=== PATIENT | female | born 1940 | race Caucasian/White ===

== ENCOUNTER → 2017-01-12 | Outpatient (CLI) | payer MEDICARE, BC ==
[~2017-01-12] MED LIST: ADVIL200 MG PO; ALEVE PO; AMARYL 2MG T2 MG/TAB PO; AMARYL4 MG PO; ASPIRIN E.C. 8181 MG PO; BENTYL 20MG20 MG/TAB PO; CRESTOR 10MG10 MG PO; GLUCOPHAGE XR500 M1 PO; HCTZ 25MG TAB25 MG PO; JANUVIA 100MG100 MG PO; LANTUS SOLOS100 U/ML SQ; MULTIPLE VITAMI1 CAP PO; SUPER EPA-3001000 MG PO; ULTRAM 50MG TAB50 MG PO; ZANTAC PO; ZESTRIL 5MG5 MG PO; [UNRECOGNIZED DRUG - OTHER] PO
== END ==
LOC: MC.RAD 16:33
DX: Z12.31 Encounter for screening mammogram for malignant neoplasm of breast (principal)

== ENCOUNTER → 2018-01-13 | Outpatient (CLI) | payer MEDICARE, BC | LOC: MC.RAD 08:20 | DX: Z12.31 Encounter for screening mammogram for malignant neoplasm of breast (principal) ==

== ENCOUNTER → 2019-02-21 | Outpatient (CLI) | payer MEDICARE, BC | LOC: MC.RAD 11:30 | DX: Z12.31 Encounter for screening mammogram for malignant neoplasm of breast (principal) ==

== ENCOUNTER 2019-04-01 16:12 | Emergency (ER) | payer MEDICARE, BC ==
[2019-04-01 16:16] VITALS: BP 161/70; TEMP 97.6
[2019-04-01 17:22] LABS: BASO % 0.5 % (0.0-2.0); EOS # 0.1 (0.0-0.7); EOS % 1.8 % (0-4.0); GRAN # 3.1 (1.4-6.5); GRAN % 47.2 % (42.2-75.2); HEMATOCRIT 38.4 % (37.0-47.0); HEMOGLOBIN 12.4 g/dl (12.5-16.0); LYMPH # 2.7 (1.2-3.4); LYMPH % 41.8 % (20.0-51.0); MEAN CELL VOLUME 90 fl (80.0-100.0); MEAN CORPUSCULAR HEMOGLOBIN 29 pg (27.0-31.0); MEAN CORPUSCULAR HGB CONC 32 g/dl (33.0-37.0); MEAN PLATELET VOLUME 9.9 fl (7.4-10.4); MONO # 0.6 (0.1-0.6); MONO % 8.4 % (1.7-9.3); PLATELET COUNT 216 K/mm3 (130-400); RED BLOOD COUNT 4.27 M/mm3 (4.10-5.30); REDCELL DISTRIBUTION WIDTH-CV 12.9 % (11.5-14.5)
[2019-04-01 17:37] LABS: ALBUMIN 4.3 gm/dL (3.5-5.0); BILIRUBIN,TOTAL 0.6 mg/dL (0.0-1.0); CALCIUM 9.3 mg/dL (8.4-10.2); CREATININE, serum 0.95 (0.52-1.25); TOTAL PROTEIN 7.7 gm/dL (6.4-8.2)
[2019-04-01] MEDS ORDERED: ZOFRAN ODT4 MG PO (18:31)
[2019-04-01 19:00] VITALS: PULSE 78
== END 2019-04-01 19:00 | disposition home or self-care (01) ==
LOC: COL.ER 16:12
PROVIDERS: Emergency Medicine
DX: S06.0X9A Concussion with loss of consciousness of unspecified duration, initial encounter (principal); S00.93XA Contusion of unspecified part of head, initial encounter; Z79.82 Long term (current) use of aspirin; Z79.4 Long term (current) use of insulin; W22.8XXA Striking against or struck by other objects, initial encounter

== ENCOUNTER 2019-06-11 11:11 | Inpatient (IN) | payer MEDICARE, BC ==
[~2019-06-11] VITALS: Ht 167.6 cm; Wt 81.3 kg
[~2019-06-11 11:11] MED LIST changes: +ZOFRAN ODT4 MG PO
[2019-06-11] MEDS ORDERED: LIPITOR20 MG PO (11:40)
[2019-06-11] MEDS ORDERED: JANUVIA50 MG PO (11:40)
[2019-06-11 12:05] LABS: HEMOGLOBIN 11.1 g/dl (12.5-16.0); MEAN CELL VOLUME 87 fl (80.0-100.0); MEAN CORPUSCULAR HEMOGLOBIN 28 pg (27.0-31.0); MEAN CORPUSCULAR HGB CONC 32 g/dl (33.0-37.0); MEAN PLATELET VOLUME 10.5 fl (7.4-10.4); PLATELET COUNT 213 K/mm3 (130-400); RED BLOOD COUNT 3.93 M/mm3 (4.10-5.30); REDCELL DISTRIBUTION WIDTH-CV 13.8 % (11.5-14.5)
[2019-06-11 12:08] LABS: HEMATOCRIT 34.3 % (37.0-47.0)
[2019-06-11 12:10] LABS: INR 1.1 (0.8-3.0); PROTHROMBIN TIME 12.3 SECONDS (9.7-12.8)
[2019-06-11 12:19] LABS: ALANINE AMINOTRANSFERASE 19 U/L (4-34); ALBUMIN 3.6 gm/dL (3.5-5.0); ALKALINE PHOSPHATASE 151 U/L (50-136); ANION GAP 9 mmol/L (7-16); AST,SGOT 27 U/L (15-37); BILIRUBIN,TOTAL 1.6 mg/dL (0.0-1.0); BLOOD UREA NITROGEN 35 mg/dL (7-17); CARBON DIOXIDE 26 mmol/L (22-30); CHLORIDE 102 mmol/L (98-107); CREATININE, serum 1.03 (0.52-1.25); GLUCOSE 286 mg/dL (74-106); LIPASE 43 U/L (23-300); POTASSIUM 3.8 mmol/L (3.4-5.0); SODIUM 137 mmol/L (137-145); TOTAL PROTEIN 7.1 gm/dL (6.4-8.2)
[2019-06-11 12:24] LABS: BAND 30 % (0-10); LYMPHOCYTE 6 % (20.0-51.0); METAMYELOCYTE 1 % (0-0); OVALOCYTES 2+; PLATELET ESTIMATE NORMAL (NORMAL)
[2019-06-11 12:33] LABS: TROPONIN-I < 0.012 ng/mL (0.000-0.035)
[2019-06-11 12:35] LABS: NEUTROPHILS 58 % (42.0-75.2)
[2019-06-11 13:02] LABS: C-REACTIVE PROTEIN 36.8 mg/dL (0.0-0.9)
[2019-06-11 13:22] LABS: COLLECTION METHOD CLEAN CATCH
[2019-06-11 13:35] LABS: MUCOUS Present /lpf; PH 6 (5-8); SQUAMOUS EPITHELIAL 0-2 /hpf; URINE APPEARANCE Hazy; URINE BACTERIA Rare /hpf; URINE BILIRUBIN Negative (NEGATIVE); URINE BLOOD 1+ (NEGATIVE); URINE COLOR Yellow; URINE GLUCOSE 3+ (NEGATIVE); URINE KETONE Trace (NEGATIVE); URINE LEUKOCYTE ESTERASE 3+ (NEGATIVE); URINE NITRATE Positive (NEGATIVE); URINE PROTEIN(semi-quant) Negative (NEGATIVE); URINE UROBILINOGEN Negative (NEGATIVE)
--- NOTE | 2019-06-11 14:40 | NUR ---
Pt to room 318 on medical unit at 1415. Pt came up via stretcher from ED. Dr. Orozco with pt, will wait until he is done before imaging scheduler.
[2019-06-11 15:35] VITALS: BP 125/51; PULSE 75; TEMP 97.9
[2019-06-11 19:05] VITALS: BP 129/41; PULSE 76; TEMP 97.8
--- NOTE | 2019-06-11 19:20 | NUR ---
Pt report received from Jyotsna RN at Pt bedside. No s/s of distress noted. Call light is at Pt side and bedside table has beverages within reach. Will continue to monitor.
--- NOTE | 2019-06-11 19:21 | NUR ---
report given to angela arenas.
[2019-06-11 23:29] VITALS: BP 112/45; PULSE 72; TEMP 99.1
[2019-06-12] VITALS (7 sets, daily range): BP systolic 127–142; BP diastolic 47–60; PULSE 74–138; TEMP 98–98.9
--- NOTE | 2019-06-12 01:52 | NUR ---
Pt has remained in stable condition during the shift and is resting peacefully in bed at this time with eyes closed and no s/s of distress noted. Pt is A&Ox4, able to make wants/needs known, and has call light within reach. Pt has a persistent cough with sputum produced periodically that is thick and reported as green/yellow. Pt has remained in a generally positive mood this shift and is cooperative with care and compliant with medication regimen. Will continue to monitor.
[2019-06-12 06:36] LABS: BASO % 0.3 % (0.0-2.0); EOS # 0.1 (0.0-0.7); EOS % 1.7 % (0-4.0); GRAN # 4.4 (1.4-6.5); GRAN % 69.2 % (42.2-75.2); LYMPH # 1.1 (1.2-3.4); LYMPH % 17.1 % (20.0-51.0); MEAN CELL VOLUME 88 fl (80.0-100.0); MEAN CORPUSCULAR HGB CONC 32 g/dl (33.0-37.0); MONO # 0.7 (0.1-0.6); MONO % 10.9 % (1.7-9.3); PLATELET COUNT 186 K/mm3 (130-400); RED BLOOD COUNT 3.33 M/mm3 (4.10-5.30)
[2019-06-12 06:50] LABS: HEMATOCRIT 29.4 % (37.0-47.0); HEMOGLOBIN 9.4 g/dl (12.5-16.0); MEAN CORPUSCULAR HEMOGLOBIN 28 pg (27.0-31.0)
[2019-06-12 06:51] LABS: CALCIUM 8.4 mg/dL (8.4-10.2); CREATININE, serum 0.83 (0.52-1.25); POTASSIUM 3.8 mmol/L (3.4-5.0)
--- NOTE | 2019-06-12 07:28 | NUR ---
Pt report given to Gissel ASTUDILLO.
--- NOTE | 2019-06-12 08:00 | NUR ---
PATIENT IS A&O. VSS. SR IN 70'S ON TELE. PATIENT'S ONLY C/O PAIN IS HER CHRONIC BACK PAIN RATED AT 3/10. PATIENT SITTING AT BEDSIDE EATING BREAKFAST. NURSING ASSISTED PATIENT INTO BEDSIDE CHAIR WITH PILLOW AND WARM BLANKET TO HER BACK. PATIENT REPORTS THAT FEELS MUCH BETTER. PATIENT REPORTS COUGH IS BETTER, NON-PRODUCTIVE. RIGHT LUNG-HARTMAN ARE DEMINISHED. LEFT LUNG-HARTMAN CTA. PATIENT REPORTS SHE STILL FEELS WEAK AND TIRED BUT LESS THAN WHEN SHE WAS ADMITTED. APPETITE IS BETTER. EAT/DRINKING SUFFICIENT AMOUNTS. NO C/O N/V. IV FLUIDS INFUSING INTO RIGHT AC VIA PUMP. IV ABX INFUSING. AM MEDS GIVEN. HEAD TO TOE ASSESSMENT COMPLETE. NO OTHER NEEDS. CALL LIGHT IN REACH.
[2019-06-12 08:19] LABS: PATHOLOGY DIFF REVIEW OK
[2019-06-12 09:39] LABS: ALBUMIN 2.8 gm/dL (3.5-5.0); BILIRUBIN UNCONJUGATED 0.5 mg/dL (0.0-1.1); BILIRUBIN,DIRECT 0.2 mg/dL (0.0-0.4); BILIRUBIN,TOTAL 0.7 mg/dL (0.0-1.0); TOTAL PROTEIN 5.9 gm/dL (6.4-8.2)
--- NOTE | 2019-06-12 13:50 | NUR ---
TELE CALLED REPORTING PATIENT IS GOING IN AND OUT OF A-FIB. PATIENT HAS NO HX OF A-FIB. NOTED HR IN THE 130'S AND HEART SOUNDED FAST UPON ENTERING ROOM. AFTER JUST 1-2 MIN PATIENT HR WAS BACK IN THE 80'S AND SR. PATIENT ASYMPTOMATIC. STAT EKG ORDERED AND RT AT BEDSIDE. HOSPITALIST NOTIFIED.
--- NOTE | 2019-06-12 13:55 | NUR ---
GAVE CARDIZEM BOLUS PER ORDERS.
--- NOTE | 2019-06-12 14:31 | NUR ---
SULY met with the patient and her daughter, Kathleen Lindsay (ph#[phone]), to discuss discharge plan. 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 She reports independence with ADLs and does not have any DME. The patient's PCP is Dr. Farhad Gonzalez and she receives her medications at [facility] or [facility]. She reports no difficulties obtaining her meds. The patient does not have advanced directives completed, but she was interested in obtaining a form for DPOA-HC. SULY provided. The patient plans to return home with her son upon discharge. No additional needs at this time.
--- NOTE | 2019-06-12 14:39 | NUR ---
First visit from the sanitary chemist. No needs right now.
--- NOTE | 2019-06-12 17:20 | NUR ---
TELE CALLED AND REPORTED PATIENT APPEARED TO BE IN A-FIB ON TELE AGAIN. PATIENT SITTING UP IN BEDSIDE CHAIR, ASYMPTOMATIC, VSS WITH HR IN 80'S. NOTIFIED HOSPITALIST. SEE NEW ORDERS.
--- NOTE | 2019-06-12 19:00 | NUR ---
Pt report received from dayshift nurse at bedside. Pt has call light within reach and during shift report informs this mortgage or loan underwriter that she would like a pain pill at bedtime to help make her confortable and help with her back pain. No s/s of distress noted. Will continue to monitor.
--- NOTE | 2019-06-12 23:24 | NUR ---
Pt has been resting peacefully in bed during this shift with no s/s of distress noted. Pt requested her PRN [place] at HS for back pain. Pt has call light within reach and beverages on her bedside table within reach. Pt is A&Ox4 and is able to make wants/needs known. This service writer has received no rpeorts from tele nurse during this shift so far regarding Pt's rate or rhythym. Will continue to monitor.
[2019-06-13 00:25] VITALS: BP 117/46; PULSE 78; TEMP 99.3
[2019-06-13 03:35] VITALS: BP 130/45; PULSE 81; TEMP 98.7
--- NOTE | 2019-06-13 04:57 | NUR ---
Pt has been resting in bed when this keno writer / runner was notified by Tele Nurse that Pt had elevated HR with some PAC's that last for a few moments and then Pt converts back into NSR. This keno writer / runner will check on Pt and inform Tele of assessment.
--- NOTE | 2019-06-13 05:07 | NUR ---
Pt resting in bed peacefully with eyes open as this typewriter ribbon winder enters room. Pt denies any current or recent chest pain, pressure, palpitations, changes to respiratory status, or any pain out of the ordinary. This typewriter ribbon winder assessed Pt's apical pulse and noted a regular rhythym and a rate of 84. Tele nurse given report. Will continue to monitor.
--- NOTE | 2019-06-13 05:37 | NUR ---
Pt AM meds given and Pt reports that she has continued back pain with the Ultram not working as effectively as the [place] that she had at HS. Pt continues to have pain at this time and requests PRN pain medication. Call light at Pt's side. Will continue to monitor.
--- NOTE | 2019-06-13 07:10 | NUR ---
Pt report given to Melodie ASTUDILLO
[2019-06-13 07:42] LABS: MEAN CELL VOLUME 87 fl (80.0-100.0); MEAN CORPUSCULAR HGB CONC 33 g/dl (33.0-37.0); MEAN PLATELET VOLUME 9.7 fl (7.4-10.4); PLATELET COUNT 216 K/mm3 (130-400)
[2019-06-13 07:54] LABS: HEMATOCRIT 29.7 % (37.0-47.0); HEMOGLOBIN 9.7 g/dl (12.5-16.0); MEAN CORPUSCULAR HEMOGLOBIN 29 pg (27.0-31.0)
[2019-06-13 08:00] VITALS: BP 127/46; PULSE 82; TEMP 97.9
[2019-06-13 08:04] LABS: CALCIUM 8.2 mg/dL (8.4-10.2); CREATININE, serum 0.76 (0.52-1.25); MAGNESIUM 1.8 mg/dL (1.6-2.3); POTASSIUM 3.6 mmol/L (3.4-5.0)
--- NOTE | 2019-06-13 08:26 | NUR ---
PATIENT IS ALERT AND ORIENTED. EATING BREAKFAST FINE. EDEMA IN RIGHT UPPER EXTREMITY. COMMPLAINS OF MILD PAIN IN HER BACK(RIGHT SIDE). COUGH IS NON PRODUCTIVE.
[2019-06-13 08:32] LABS: TSH w REFLEX 1.9 uIU/mL (0.465-4.680)
[2019-06-13 08:48] LABS: BAND 14 % (0-10); EOSINOPHIL 1 % (0-4); LYMPHOCYTE 19 % (20.0-51.0); METAMYELOCYTE 1 % (0-0); NEUTROPHILS 60 % (42.0-75.2); PLATELET ESTIMATE NORMAL (NORMAL)
[2019-06-13 12:01] VITALS: BP 133/50; PULSE 73; TEMP 97.8
[2019-06-13 16:43] VITALS: BP 119/44; PULSE 73; TEMP 98.6
--- NOTE | 2019-06-13 17:59 | NUR ---
Patient complain of increase in edema in her legs. IV site changed from right forearm to left forearm. patient tolerate antibiotic therapy well. Family -daughter visit at bedside. patient mention she didn't have enough urine output has in the past, Bladder scan show 120mL fluid. Patient requested for pee medication, Dr Orozco was informed of the litttle increase of edema in her feet bilaterally. Dr Orozco said he might consider diuretic medication tomorrow. Patient output willl be observed continuously.
[2019-06-13 20:10] VITALS: BP 138/56; PULSE 75; TEMP 98.9
--- NOTE | 2019-06-13 22:36 | NUR ---
RECIEVED REPORT FROM DAY SHIFT. PATIENT WAS UP AND MOVING IN HER ROOM. INSULIN WAS GIVEN TO HER AT HS. PATIENT WAS ALSO GIVEN A PAIN PILL TO HELP WITH HER PAIN. PATIENT HAS HER CALL LIGHT WITHIN IN REACH IF SHE NEEDS SOMETHING,
[2019-06-14] VITALS (7 sets, daily range): BP systolic 125–143; BP diastolic 45–57; PULSE 71–88; TEMP 97.7–99.7
--- NOTE | 2019-06-14 05:07 | NUR ---
PATIENT HAS BEEN ABLE TO REST THROUGHOUT THE NIGHT AND GET COMFORTABLE. ONLY REQUESTED PAIN MEDICATION THIS AM. EDEMA STILL PRESENT ON THE RIGHT SIDE THAT I WILL LET DAY SHIFT KNOW ABOUT. WILL REPORT TO DAY SHIFT UPON THEIR ARRIVAL OF HOW THE PATIENTS NIGHT WAS AND HER CONDITION.
[2019-06-14 06:39] LABS: MEAN CELL VOLUME 87 fl (80.0-100.0); MEAN CORPUSCULAR HGB CONC 32 g/dl (33.0-37.0); MEAN PLATELET VOLUME 9.6 fl (7.4-10.4); PLATELET COUNT 240 K/mm3 (130-400); RED BLOOD COUNT 3.38 M/mm3 (4.10-5.30); REDCELL DISTRIBUTION WIDTH-CV 13.9 % (11.5-14.5)
[2019-06-14 06:48] LABS: HEMATOCRIT 29.5 % (37.0-47.0); HEMOGLOBIN 9.4 g/dl (12.5-16.0); MEAN CORPUSCULAR HEMOGLOBIN 28 pg (27.0-31.0)
--- NOTE | 2019-06-14 08:15 | NUR ---
Patient is sitting up on side of the bed, denies having any pain. Call light and personal items are within reach.
[2019-06-14 08:25] LABS: BAND 13 % (0-10); EOSINOPHIL 5 % (0-4); LYMPHOCYTE 23 % (20.0-51.0); METAMYELOCYTE 2 % (0-0); MYELOCYTE 1 % (0-0); NEUTROPHILS 46 % (42.0-75.2); PLATELET ESTIMATE NORMAL (NORMAL)
[2019-06-14 08:26] LABS: OVALOCYTES 1+
--- NOTE | 2019-06-14 18:08 | NUR ---
Patient is sitting up in recliner eating supper. There is a visitor at bedside. Call light and personal items are within reach.
--- NOTE | 2019-06-14 18:54 | NUR ---
Received call from tele later in the afternoon that patient was having high heart rate that appeared to be atrial fibrillation. Did check on patient and she was noted to be up in her room. She did sit down and rate continued. Did notify providers and was instructed to monitor rate and rhythm and notify if no changes were made and an EKG would be ordered. Notified telemetry of this and they informed me that rate and rhythm had normalized.
[2019-06-15 00:58] VITALS: BP 126/43; PULSE 78; TEMP 99.9
[2019-06-15 05:03] VITALS: BP 138/60; PULSE 79; TEMP 99.9
--- NOTE | 2019-06-15 05:22 | NUR ---
PATIENT HAS BEEN RESTING THROUGHOUT THE NIGHT. PATIENT DOES REPORT SOME PAIN IN HER RIGHT SIDE AND BACK THAT [place] HAS BEEN GIVEN FOR. PATIENT IS INDEPDENT IN ROOM AND IS ABLE TO CARE FOR HERSELF. PATIENT DENIES ANY OTHER NEEDS AT THIS TIME. WILL REPORT OFF TO DAY SHIFT UPON THEIR ARRIVAL.
[2019-06-15 07:52] VITALS: BP 121/74; PULSE 80; TEMP 99.6
--- NOTE | 2019-06-15 09:10 | NUR ---
Patient is alert and oriented, complain of back pain. patient eating at this time. administered 4 units of insulin.
[2019-06-15] MEDS ORDERED: OMNICEF 300MG300 MG PO (09:41)
[2019-06-15] MEDS ORDERED: TOPROL XL 25MG25 MG PO (09:42)
[2019-06-15 11:17] VITALS: BP 129/55; PULSE 74; TEMP 98.2
--- NOTE | 2019-06-15 11:18 | NUR ---
The patient is to discharge back home with her son today, 06/14. SW met with the patient to present and explain the IM form to the patient. The patient verbalized understanding, signed, and she was provided a copy. No additional needs at this time.
--- NOTE | 2019-06-15 13:37 | NUR ---
Patient verbalized understanding of discharge and medication instruction. IV removed. patient is stable at this time. patient confirms she have everything she came in with. Daughter is driving patient home. patient discharged.
== END 2019-06-15 12:25 | disposition home or self-care (01) | DRG 871 ==
LOC: COL.ER 11:11 → MEDICAL 13:47
PROVIDERS: Emergency Medicine; ADMIT Hospitalist
DX: A41.9 Sepsis, unspecified organism (principal); J18.9 Pneumonia, unspecified organism; N39.0 Urinary tract infection, site not specified; J91.8 Pleural effusion in other conditions classified elsewhere; I48.0 Paroxysmal atrial fibrillation; E11.9 Type 2 diabetes mellitus without complications; K80.20 Calculus of gallbladder without cholecystitis without obstruction; E78.5 Hyperlipidemia, unspecified; K59.00 Constipation, unspecified; Z90.710 Acquired absence of both cervix and uterus; Z79.82 Long term (current) use of aspirin; Z79.4 Long term (current) use of insulin; Z79.891 Long term (current) use of opiate analgesic
CPT/HCPCS: 99223-AI; 99231-AI; 99233-AI; 99239; A4216; J0456; J0696; J1650; J1815; J7030; J7050; Q9967

== ENCOUNTER → 2020-06-07 | Outpatient (CLI) | payer MEDICARE, BC ==
[~2020-06-07] MED LIST changes: +JANUVIA50 MG PO; +LIPITOR20 MG PO; +OMNICEF 300MG300 MG PO; +TOPROL XL 25MG25 MG PO
== END ==
LOC: MC.RAD 14:30
DX: Z12.31 Encounter for screening mammogram for malignant neoplasm of breast (principal)

== ENCOUNTER → 2020-07-12 | Outpatient (CLI) | payer MEDICARE, BC | LOC: COL.RAD 06-24 09:00 | DX: M76.11 Psoas tendinitis, right hip (principal) | CPT/HCPCS: J3301; Q9967 ==

== ENCOUNTER 2021-03-07 10:12 | Outpatient (CLI) | payer MEDICARE, BC ==
[~2021-03-07] VITALS: Ht 167.7 cm; Wt 79.0 kg
[2021-03-07 10:55] VITALS: BP 134/59; PULSE 65; TEMP 98.1
[2021-03-07] MEDS ORDERED: FOSAMAX 70MG TA70 MG PO (11:05)
[2021-03-07] MEDS ORDERED: CALCIUM 600600 MG PO (11:06)
[2021-03-07] MEDS ORDERED: VITAMIN D31000 I1 PO (11:07)
[2021-03-07] MEDS ORDERED: AMARYL 2MG T2 MG/TAB PO (11:08)
[2021-03-07] MEDS ORDERED: AMARYL1 MG PO (11:08)
[2021-03-07] MEDS ORDERED: JANUVIA 100MG100 MG PO (11:18)
[2021-03-07] MEDS ORDERED: OMEGA-3 FISH1000 MG PO (11:23)
[2021-03-07] MEDS ORDERED: TOPROL XL 25MG25 MG PO (11:23)
[2021-03-07] MEDS ORDERED: LASIX 20MG TABL20 MG PO (11:24)
[2021-03-07] MEDS ORDERED: TYLENOL 500MG500 MG PO (11:24)
[2021-03-07 11:56] VITALS: BP 133/53; PULSE 71
--- NOTE | 2021-03-07 12:25 | NUR ---
Discharge instructions given to pt.Pt verbalizes understanding.Pt escorted out via ambulatory by this nurse.
== END 2021-03-07 14:53 ==
LOC: COL.CAR 10:12
DX: I48.0 Paroxysmal atrial fibrillation (principal); E11.42 Type 2 diabetes mellitus with diabetic polyneuropathy; E78.2 Mixed hyperlipidemia; J90 Pleural effusion, not elsewhere classified; J43.9 Emphysema, unspecified; M17.11 Unilateral primary osteoarthritis, right knee; L93.0 Discoid lupus erythematosus; M81.0 Age-related osteoporosis without current pathological fracture; Z85.828 Personal history of other malignant neoplasm of skin; Z79.82 Long term (current) use of aspirin; Z79.84 Long term (current) use of oral hypoglycemic drugs; Z79.899 Other long term (current) drug therapy
CPT/HCPCS: 27886; C1764

== ENCOUNTER → 2023-12-20 | Outpatient (CLI) | payer MEDICARE, BC ==
[~2023-12-20] MED LIST changes: +AMARYL1 MG PO; +CALCIUM 600600 MG PO; +FOSAMAX 70MG TA70 MG PO; +LASIX 20MG TABL20 MG PO; +OMEGA-3 FISH1000 MG PO; +TYLENOL 500MG500 MG PO; +VITAMIN D31000 I1 PO
== END ==
LOC: COL.RAD 08:30
DX: M43.16 Spondylolisthesis, lumbar region (principal); M51.36 Other intervertebral disc degeneration, lumbar region; M51.37 Other intervertebral disc degeneration, lumbosacral region; M47.816 Spondylosis without myelopathy or radiculopathy, lumbar region; M47.817 Spondylosis without myelopathy or radiculopathy, lumbosacral region; M48.061 Spinal stenosis, lumbar region without neurogenic claudication; M41.86 Other forms of scoliosis, lumbar region